=== PATIENT | male | born 1980 | race Hispanic/Latino ===

== ENCOUNTER 2016-07-10 14:38 | Emergency (ER) | payer MEDICAID ==
[~2016-07-10] VITALS: Ht 172.7 cm; Wt 81.8 kg
[2016-07-10 14:41] VITALS: BP 129/83; PULSE 74; RESP 18; O2SAT 98
== END 2016-07-10 14:55 | disposition left against medical advice (07) ==
LOC: SED 14:38
DX: M54.5 Low back pain (principal)

== ENCOUNTER 2016-07-10 16:47 | Emergency (ER) | payer OTHER ==
[~2016-07-10] VITALS: Ht 172.7 cm; Wt 81.8 kg
[2016-07-10 16:50] VITALS: BP 135/82; PULSE 77; RESP 18; O2SAT 97
--- NOTE | 2016-07-10 18:25 | ED.REPORT ---
HPI-Back Pain Under 40 Date of Service Jul 10, 2016 ED Provider: Tyler Peralta MD Patient is a 35 year old male who presents to the ED complaining of back pain after lifting objects at noon today. The patient works as a laboratory tech and states that he simply moved wrong while lifting some lamps. The patient is a very active individual, running 8 miles daily, and he does not typically experience back pain. Patient admits to feeling weak when he tries to ambulate. The patient denies bowel or bladder incontinence, numbness of his extremities, or saddle numbness. Patient denies sustaining any other injuries. Nursing Notes Stated Complaint: LOW BACK PAIN Chief Complaint: Back Pain or Injury Nursing Notes Reviewed: Yes Allergies: Coded Allergies: acetaminophen (Verified Allergy, Severe, 07/10/16) hydrocodone (Verified Allergy, Severe, 07/10/16) No Known Allergies (Unverified Allergy, Unknown, 01/23/14) General Time Seen by MD: 20:22 Chief Complaint Back pain Hx Obtained From: Patient Arrived By: Walk-in Sudden in Onset?: No Onset Occurred: 5 - 8 hours ago Symptom Duration: Since onset Location: : Generalized Quality: Painful Severity: Current: Moderate Severity: Maximum: Severe Recent Healthcare: No recent doctor visit, No recent hospitalization Similar Sx Previous: No Past Medical History Past Medical History Notes: generally healthy Past Medical History no meds Reports: GERD Past Surgical History none Social History Other Social History: Good social support, Local resident Occupation Home Care Scheduler Ambulatory Status Independent Review of Systems Musculoskeletal: Reports: Back pain, Denies: Extremity pain Neurologic: Reports: Weakness, Denies: Bladder dysfunction, Bowel dysfunction, Numbness Complete sys rev & neg: except as marked. Physical Exam Initial Vital Signs Vital Signs (First) Date Time Temp Pulse Resp B/P Pulse Ox O2 Delivery O2 Flow Rate FiO2 07/10/16 16:50 36.9 77 18 135/82 97 Room Air Head / Eyes: Atraumatic, Normocephalic, PERRL ENT: Conjunctiva normal, No scleral icterus Neck: Supple, Non-tender Respiratory: Breath sounds normal, Clear to auscultation, No respiratory distress Cardiovascular: Heart sounds normal Abdomen / GI: Soft, Non-tender, No distention Skin: Warm, Dry, No cyanosis Psychiatric: Mood/affect normal, Behavior normal, Normal thought content General/Constitutional: Awake, Alert, No acute distress Back: No midline vertebral tend (or bony deformity) right lumbar paraspinal tenderness Neurologic: Oriented X3, Speech NL, No motor deficits, No sensory deficits, CN II - XII intact, Reflexes equal bilat (normal patellar reflexes) strength is 5/5 in the bilateral lower extremities Lower Extremity / Pelvis / MS: No deformity, Neurologic intact, Vascular intact Upper Extremity / MS: No deformity, Neurologic intact, Vascular intact Re-Eval/Medical Decision Med Decision/Clinical Course In summary, the patient is a generally healthy 35-year-old male who presents with back pain that occurred in the setting of heavy lifting. Our primary and secondary assessment reveals an awake, alert patient in no acute distress. Hemodynamically stable and afebrile. Exam reveals normal neurologic exam of the lower extremities. Given this immunocompetent, afebrile, patient's history and exam, suspect muscle strain or spasm. No concerning signs or symptoms suggestive of cauda equina, cord compression, epidural abscess or other neurologic emergency. History not suggestive of referred intraabdominal pathology or vascular emergency. There is no history of significant trauma, fever, incontinence, unexplained weight loss, cancer history, long-term steroid use or IV drug use. And given the patient's young age, I do not feel imaging is warranted at this time. Given the patient's workup, feel they are safe for discharge with conservative management. The patient was given intramuscular Toradol for symptom control here in the emergency room and reported significant improvement in his symptoms. Have discussed with the patient results of workup, indications for return including: motor weakness in the lower extremities and/or bowel or bladder incontinence. Also emphasized the need for PCP follow up. They understand and agree with the plan. He will apply ice pack/hot packs and do stretching exercises. He declines prescription for pain medications. Source of Hx: Old records Re-Evaluation/Progress : Time of Eval: 20:27 Patient Status: Condition improved Re-Evaluation/Progress Note: Patient states that the Toradol improved his pain. He can take Ibuprofen at home for pain. Patient states that he does not like taking medications and declines any prescriptions. Patient understands and agrees with the plan to be discharged home. Discharge instructions and follow-up discussed. All questions were addressed. Return to the ED warnings given. Counseled Regarding: Diagnosis, Need for follow-up, When/why to return to ED Discharge & Departure Impression: Primary Impression: Low back pain Chronicity: acute Back pain laterality: unspecified Sciatica presence: unspecified whether sciatica present Qualified Code: M54.5 - Low back pain Additional Impression: Low back sprain Encounter type: initial encounter Qualified Code: S33.9XXA - Sprain of unspecified parts of lumbar spine and pelvis, initial encounter Disposition: Home All VS Reviewed: Yes Condition: Stable Patient Instructions: Acute Low Back Pain (ED) Additional Instructions: Thank you for seeking care at the emergency room. It is difficult for us to make definitive diagnoses in the ED but we believe that you are experiencing low back pain. Our primary goal today in the ED was to evaluate you for any life-threatening conditions. Your evaluation was reassuring. Alternate hot and cold packs on your back. Try to remain active and stretch often. Being sedentary only worsens back pain. You can take 600mg Ibuprofen three times daily with food and water as needed for pain. You should follow-up with your primary doctor in the next week. You should return to the ED immediately if you develop worsening back pain, numbness or weakness of your extremities, bladder or bowel incontinence or any other concerning signs or symptoms. Thank you for letting us partake in your care today. Referrals: [facility] Scribe Attestation Portions of this note were transcribed by Valerie Mccray. I, Dr. Peralta personally performed the history, physical exam and medical decision-making; I reviewed and confirmed the accuracy of the information in the transcribed note. Signed by: Fortino Bowling, 07/10/20162050 Nigel Correa DO Jul 10, 2016 18:25 Valerie Mccray Jul 10, 2016 20:28 Tyler Peralta MD Jul 11, 2016 00:33
[2016-07-10 20:47] VITALS: BP 122/79; PULSE 59; RESP 16; O2SAT 99
== END 2016-07-10 20:41 | disposition home or self-care (01) ==
LOC: SED 16:47
DX: S33.5XXA Sprain of ligaments of lumbar spine, initial encounter (principal); X50.0XXA Overexertion from strenuous movement or load, initial encounter; Y93.89 Activity, other specified; Y92.9 Unspecified place or not applicable; Y99.0 Civilian activity done for income or pay; K21.9 Gastro-esophageal reflux disease without esophagitis; Z88.6 Allergy status to analgesic agent; Z88.5 Allergy status to narcotic agent
CPT/HCPCS: 96372; 99283; J1885